=== PATIENT | female | born 1955 | race Two or more races ===

== ENCOUNTER 2017-01-07 19:59 | Emergency (ER) | payer MEDICAID, OTHER ==
[~2017-01-07] VITALS: Ht 154.9 cm; Wt 99.8 kg
[~2017-01-07 19:59] MED LIST: ASPI-618 PO; GLIM1TAB PO; LANS30TA4 PO; NITR0.4T SL
--- NOTE | 2017-01-07 20:38 | NUR ---
PATIENT WALKED INTO ER WITH FAMILY MEMBER C/O WEAKNESS X3 DAYS AND NAUSEA AND EPIGASTRIC AFTER EATTING. DENIES PAIN,SOB UPON ARRIVAL. DR PULLIAM INTO EVAL PATIENT
[2017-01-07 20:56] LABS: *BILIRUBIN,URIN NEGATIVE (NEGATIVE); *BLOOD, URINE Trace-intact (NEGATIVE); *CLARITY,URINE CLEAR (CLEAR); *COLOR,URINE YELLOW (YELLOW); *KETONES,URINE NEGATIVE (NEGATIVE); *PROTEIN,URINE NEGATIVE (NEGATIVE); *UROBILINOGEN,URINE 0.2 E.U./dl (NORMAL); LEUKOCYTE ESTERASE ,URINE TRACE (NEGATIVE); NITRITE, URINE NEGATIVE (NEGATIVE); PH,URINE 6.5 (5.0-8.0); UGLUCOSE NEGATIVE (NEGATIVE)
[2017-01-07 21:02] LABS: BACTERIA,URINE FEW /HPF (NONE SEEN); RBC,URINE 0-3 /HPF (0-3); SQUAMOUS EPITHELIAL CELL,UR FEW /HPF (NONE SEEN)
[2017-01-07 21:51] LABS: CREATININE 0.5 mg/dL (0.6-1.3); POTASSIUM 3.9 mmol/L (3.5-5.1)
[2017-01-07 21:53] LABS: BASOPHILS % (AUTO) 0.4 % (0.0-2.0); EOSINOPHILS # (AUTO) 0.1 K/uL (0.0-0.7); HEMATOCRIT 43.2 % (37-47); HEMOGLOBIN 14.9 G/DL (12.0-16.0); LYMPHOCYTES # (AUTO) 1.9 K/UL (0.8-4.8); LYMPHOCYTES % (AUTO) 25.7 % (20.5-51.5); MEAN CORPUSCULAR HEMOGLOBIN 29.8 UUG (27.0-31.0); MEAN CORPUSCULAR HGB CONC 34 g/dL (32.0-37.0); MEAN CORPUSCULAR VOLUME 86.5 FL (81.0-99.0); MONOCYTES # (AUTO) 0.6 K/UL (0.1-1.30); MONOCYTES % (AUTO) 8.6 % (0.0-11.0); NEUTROPHILS # (AUTO) 4.7 K/UL (1.8-8.9); NEUTROPHILS % (AUTO) 63.3 % (38.5-71.5); PLATELET COUNT (AUTO) 202 K/UL (150-450); RED BLOOD CELL COUNT(AUTO) 4.99 MIL/UL (4.2-5.4); WHITE BLOOD COUNT (AUTO) 7.3 K/UL (4.0-11.2)
[2017-01-07 21:57] LABS: BILIRUBIN,DIRECT 0.1 mg/dL (0.0-0.2); BILIRUBIN,TOTAL 0.9 mg/dL (0.2-1.0); TOTAL PROTEIN, SERUM 7.4 g/dL (6.4-8.2)
--- NOTE | 2017-01-07 22:22 | NUR ---
Patient discharged to home in stable conditon WITH SON TAKING PATIENT HOME. Written and verbal after care instructions given. Patient verbalizes understanding of instructions. WALKED OUT OF ER WITH STEADY GAIT. NO DISTRESS NOTED
[2017-01-07 22:23] VITALS: BP 150/78
== END 2017-01-07 22:23 | disposition home or self-care (01) ==
LOC: ER 20:03
DX: E03.9 Hypothyroidism, unspecified (principal); I10 Essential (primary) hypertension; K21.9 Gastro-esophageal reflux disease without esophagitis; E11.9 Type 2 diabetes mellitus without complications; Z79.82 Long term (current) use of aspirin
CPT/HCPCS: 36415; 70030-TC; 71010; 83690; 84443; 85025; 93005; A4663; J7030

== ENCOUNTER 2023-06-07 13:28 | Inpatient (IN) | payer MEDICARE, OTHER ==
[~2023-06-07] VITALS: Ht 157.5 cm; Wt 90.7 kg
[2023-06-07] MEDS ORDERED: AMLO-362 PO (13:48)
[2023-06-07] MEDS ORDERED: MECL-159 (13:48)
[2023-06-07] MEDS ORDERED: GABA-532 PO (13:48)
[2023-06-07] MEDS ORDERED: GLIM1TAB18 PO (13:48)
[2023-06-07] MEDS ORDERED: HYDR25TA86 PO (13:48)
[2023-06-07] MEDS ORDERED: PROP20TA19 (13:48)
[2023-06-07] MEDS ORDERED: HYDR-3980 PO (13:48)
[2023-06-07] MEDS ORDERED: ACET-73 PO (13:48)
[2023-06-07] MEDS ORDERED: ASCO500T23 PO (13:48)
[2023-06-07] MEDS ORDERED: ERGO500040 PO (13:48)
[2023-06-07] MEDS ORDERED: ASPI-1420 PO (13:48)
[2023-06-07] MEDS ORDERED: SIMV10TA98 PO (13:48)
[2023-06-07] MEDS ORDERED: ASPIRIN 81 MG TAB.CHEW ONE (14:25)
[2023-06-07] MEDS: ASPIRIN 81 MG TAB.CHEW PO ONE (14:28)
[2023-06-07 14:51] LABS: *BILIRUBIN,URIN NEGATIVE (NEGATIVE); *BLOOD, URINE NEGATIVE (NEGATIVE); *CLARITY,URINE CLEAR (CLEAR); *COLOR,URINE YELLOW (YELLOW); *KETONES,URINE NEGATIVE (NEGATIVE); *PROTEIN,URINE NEGATIVE (NEGATIVE); *UROBILINOGEN,URINE 0.2 E.U./dl (NORMAL); LEUKOCYTE ESTERASE ,URINE 1+ (NEGATIVE); NITRITE, URINE NEGATIVE (NEGATIVE); UGLUCOSE NEGATIVE (NEGATIVE)
[2023-06-07 15:02] LABS: BASOPHILS % (AUTO) 0.5 % (0.0-2.0); EOSINOPHILS % (AUTO) 0.5 % (0.0-7.0); HEMATOCRIT 43.5 % (31.2-41.9); HEMOGLOBIN 15.3 g/dL (10.9-14.3); LYMPHOCYTES # (AUTO) 1.4 K/uL (0.8-4.8); LYMPHOCYTES % (AUTO) 21.6 % (20.5-51.5); MEAN CORPUSCULAR HEMOGLOBIN 31.1 uug (24.7-32.8); MEAN CORPUSCULAR HGB CONC 35 g/dL (32.3-35.6); MEAN CORPUSCULAR VOLUME 88.4 fL (75.5-95.3); MONOCYTES # (AUTO) 0.4 K/uL (0.1-1.30); NEUTROPHILS # (AUTO) 4.5 K/uL (1.8-8.9); NEUTROPHILS % (AUTO) 70.4 % (38.5-71.5); PLATELET COUNT (AUTO) 158 K/uL (179-408); RED BLOOD CELL COUNT(AUTO) 4.91 MIL/uL (3.63-4.92); RED CELL DISTRIBUTION WIDTH 13.4 % (12.3-17.7); WHITE BLOOD COUNT (AUTO) 6.4 K/uL (3.8-11.8)
[2023-06-07 15:09] LABS: RBC,URINE 0-3 /HPF (0-3)
[2023-06-07 15:10] LABS: BACTERIA,URINE FEW /HPF (NONE SEEN); SQUAMOUS EPITHELIAL CELL,UR FEW /HPF (NONE SEEN)
[2023-06-07 15:11] LABS: CALCIUM 9.5 mg/dL (8.5-10.1); CARBON DIOXIDE 27 mmol/L (21-32); CHLORIDE 101 mmol/L (98-107); CREATININE 0.6 mg/dL (0.6-1.3); GLUCOSE 146 mg/dL (74-106); POTASSIUM 3.7 mmol/L (3.5-5.1); SODIUM SERUM 138 mmol/L (136-145); UREA NITROGEN, BLOOD 18 mg/dL (7-18)
[2023-06-07 15:20] LABS: DIFFERENTIAL COMMENT 1
[2023-06-07 15:27] LABS: ALANINE AMINOTRANSFERASE 96 U/L (14-59); ALBUMIN 4.1 g/dL (3.4-5.0); ALKALINE PHOSPHATASE 88 U/L (50-136); ASPARTATE AMINOTRANSFERASE 68 U/L (15-37); BILIRUBIN,DIRECT 0.2 mg/dL (0.0-0.2); BILIRUBIN,TOTAL 1.3 mg/dL (0.2-1.0); NT-PRO BNP 36 pg/mL (0-125); TOTAL PROTEIN, SERUM 8.6 g/dL (6.4-8.2)
[2023-06-07] MEDS ORDERED: CLONIDINE HCL 0.1 MG TABLET ONE (15:51)
[2023-06-07] MEDS: CLONIDINE HCL 0.1 MG TABLET PO ONE (15:55)
[2023-06-07] MEDS ORDERED: SULFAMETH/TRIMETH 800/160 MG TABLET ONE (15:56)
[2023-06-07] MEDS: SULFAMETH/TRIMETH 800/160 MG TABLET PO ONE (15:59)
[2023-06-07 16:01] LABS: THYROID STIMULATING HORMONE 3.07 mIU/mL (0.358-3.740)
[2023-06-07 16:25] LABS: MAGNESIUM 1.9 mg/dL (1.8-2.4)
[2023-06-07] MEDS ORDERED: FLAS1EAC2 TP (16:59)
[2023-06-07] MEDS ORDERED: FLAS1KIT2 TP (16:59)
[2023-06-07] MEDS ORDERED: INSULIN REGULAR, HUMAN 300 UNITS/3 ML VIAL SQ PRN (17:30)
[2023-06-07] MEDS ORDERED: MAGNESIUM HYDROXIDE 30 ML LIQUID UDC PO PRN (17:30)
[2023-06-07] MEDS ORDERED: HYDROCODONE/APAP 5-325MG TABLET PO PRN (17:30)
[2023-06-07] MEDS ORDERED: ACETAMINOPHEN 325 MG TABLET PO PRN (17:30)
[2023-06-07] MEDS ORDERED: ONDANSETRON 4 MG/2 ML VIAL IV PRN (17:30)
[2023-06-07] MEDS ORDERED: MORPHINE SULFATE 2 MG/1 ML DISP.SYRIN IV PRN (17:30)
[2023-06-07] MEDS ORDERED: NITROGLYCERIN 0.4 MG/TAB BOTTLE SL PRN (17:30)
[2023-06-07] MEDS ORDERED: DEXTROSE 50% 50 ML DISP.SYRIN IV PRN (17:30)
[2023-06-07] MEDS ORDERED: REMEDY ESSENTIAL ZINC PASTE 113 GM TP PRN (17:30)
[2023-06-07] MEDS: PROPRANOLOL HCL 20 MG TABLET PO SCH (18:50)
[2023-06-07] MEDS ORDERED: SIMVASTATIN 10 MG TABLET ONE (19:01)
[2023-06-07] MEDS: SIMVASTATIN 10 MG TABLET PO SCH (19:02)
[2023-06-07] MEDS: BLOOD SUGAR DIAGNOSTIC 1 EACH STRIP VI SCH (21:41)
[2023-06-07 21:49] VITALS: BP 127/58; TEMP 98.4; O2SAT 95
[2023-06-08] MEDS: CLONIDINE HCL 0.1 MG TABLET PO PRN (00:04)
[2023-06-08 00:10] VITALS: BP 169/81; TEMP 97.9; O2SAT 97
[2023-06-08 04:20] VITALS: BP 134/58; TEMP 98.2; O2SAT 95
[2023-06-08 06:55] LABS: CREATININE 0.8 mg/dL (0.6-1.3); POTASSIUM 3.6 mmol/L (3.5-5.1)
[2023-06-08 06:59] LABS: BASOPHILS % (AUTO) 0.4 % (0.0-2.0); EOSINOPHILS # (AUTO) 0.1 K/uL (0.0-0.7); EOSINOPHILS % (AUTO) 1.8 % (0.0-7.0); HEMATOCRIT 38.6 % (31.2-41.9); HEMOGLOBIN 13.7 g/dL (10.9-14.3); LYMPHOCYTES # (AUTO) 1.8 K/uL (0.8-4.8); LYMPHOCYTES % (AUTO) 29.1 % (20.5-51.5); MEAN CORPUSCULAR HEMOGLOBIN 31.4 uug (24.7-32.8); MEAN CORPUSCULAR HGB CONC 35 g/dL (32.3-35.6); MEAN CORPUSCULAR VOLUME 88.7 fL (75.5-95.3); MONOCYTES # (AUTO) 0.6 K/uL (0.1-1.30); MONOCYTES % (AUTO) 9.8 % (0.0-11.0); NEUTROPHILS # (AUTO) 3.7 K/uL (1.8-8.9); NEUTROPHILS % (AUTO) 58.9 % (38.5-71.5); PLATELET COUNT (AUTO) 159 K/uL (179-408); RED BLOOD CELL COUNT(AUTO) 4.35 MIL/uL (3.63-4.92); RED CELL DISTRIBUTION WIDTH 13.3 % (12.3-17.7); WHITE BLOOD COUNT (AUTO) 6.3 K/uL (3.8-11.8)
[2023-06-08] MEDS ORDERED: PROPRANOLOL HCL 20 MG TABLET PO SCH (09:00)
[2023-06-08] MEDS: GABAPENTIN 100 MG CAPSULE PO SCH (10:35)
[2023-06-08] MEDS: ASPIRIN EC 81 MG TABLET.DR PO SCH (10:35)
[2023-06-08] MEDS: INSULIN REGULAR, HUMAN 300 UNIT/3 ML VIAL SQ PRN (10:40)
[2023-06-08 11:53] VITALS: BP 129/72; TEMP 97.6; O2SAT 96
[2023-06-08] MEDS ORDERED: SIMVASTATIN 10 MG TABLET PO SCH (21:00)
== END 2023-06-08 12:45 | disposition home or self-care (01) | DRG 305 ==
LOC: ER 13:28 → TRANSITION 18:06 → TELE3 20:44
PROVIDERS: ADMIT Internal Medicine; ATTEND Internal Medicine
DX: I16.0 Hypertensive urgency (principal); R07.2 Precordial pain; E11.9 Type 2 diabetes mellitus without complications; Z68.36 Body mass index [BMI] 36.0-36.9, adult; I10 Essential (primary) hypertension; E66.9 Obesity, unspecified; F41.9 Anxiety disorder, unspecified; E78.5 Hyperlipidemia, unspecified; N64.4 Mastodynia; R25.1 Tremor, unspecified; G89.29 Other chronic pain; K21.9 Gastro-esophageal reflux disease without esophagitis; Z79.82 Long term (current) use of aspirin; Z79.899 Other long term (current) drug therapy; Z79.84 Long term (current) use of oral hypoglycemic drugs; F32.A Depression, unspecified
CPT/HCPCS: 36415; 71045; 83735; 84100; 84443; 84484; 85025; 85730; 93005; G0378; J1815

== ENCOUNTER 2024-06-25 21:35 | Emergency (ER) | payer MEDICARE, OTHER ==
[~2024-06-25] VITALS: Ht 162.6 cm; Wt 104.3 kg
[~2024-06-25 21:35] MED LIST changes: +ACET-73 PO; +AMLO-362 PO; +ASCO500T23 PO; +ASPI-1420 PO; -ASPI-618 PO; +ERGO500040 PO; +FLAS1EAC2 TP; +FLAS1KIT2 TP; +GABA-532 PO; -GLIM1TAB PO; +GLIM1TAB18 PO; +HYDR-3980 PO; +HYDR25TA86 PO; +MECL-159; +PROP20TA19; +SIMV10TA98 PO
[2024-06-25 22:53] LABS: BASOPHILS % (AUTO) 0.5 % (0.0-2.0); EOSINOPHILS # (AUTO) 0.2 K/uL (0.0-0.7); EOSINOPHILS % (AUTO) 3.3 % (0.0-7.0); HEMATOCRIT 40.3 % (31.2-41.9); HEMOGLOBIN 14.2 g/dL (10.9-14.3); LYMPHOCYTES # (AUTO) 1.9 K/uL (0.8-4.8); LYMPHOCYTES % (AUTO) 26.9 % (20.5-51.5); MEAN CORPUSCULAR HEMOGLOBIN 31.1 uug (24.7-32.8); MEAN CORPUSCULAR HGB CONC 35 g/dL (32.3-35.6); MEAN CORPUSCULAR VOLUME 88.6 fL (75.5-95.3); MONOCYTES # (AUTO) 0.7 K/uL (0.1-1.30); MONOCYTES % (AUTO) 10.2 % (0.0-11.0); NEUTROPHILS # (AUTO) 4.2 K/uL (1.8-8.9); NEUTROPHILS % (AUTO) 59.1 % (38.5-71.5); PLATELET COUNT (AUTO) 158 K/uL (179-408); RED BLOOD CELL COUNT(AUTO) 4.55 MIL/uL (3.63-4.92); RED CELL DISTRIBUTION WIDTH 13.7 % (12.3-17.7); WHITE BLOOD COUNT (AUTO) 7.1 K/uL (3.8-11.8)
[2024-06-25 22:54] LABS: DIFFERENTIAL COMMENT 1
[2024-06-25 22:59] LABS: CALCIUM 9.1 mg/dL (8.5-10.1); CREATININE 0.7 mg/dL (0.6-1.3); POTASSIUM 3.5 mmol/L (3.5-5.1)
[2024-06-25] MEDS ORDERED: KETOROLAC TROMETHAMINE 30 MG INJ ONE (23:06)
[2024-06-25] MEDS: KETOROLAC TROMETHAMINE 30 MG INJ IM ONE (23:08)
[2024-06-25] MEDS: CLONIDINE HCL 0.1 MG TABLET PO ONE (23:09)
[2024-06-25 23:12] LABS: ALBUMIN 3.8 g/dL (3.4-5.0); TOTAL PROTEIN, SERUM 7.8 g/dL (6.4-8.2)
[2024-06-26] MEDS ORDERED: NAPR-1192 PO (00:54)
[2024-06-26 01:12] VITALS: BP 150/96; TEMP 97.8; O2SAT 98
== END 2024-06-26 01:12 | disposition home or self-care (01) ==
LOC: ER 22:37
DX: T14.8XXA Other injury of unspecified body region, initial encounter (principal); M25.512 Pain in left shoulder; M54.2 Cervicalgia; M79.605 Pain in left leg; R94.31 Abnormal electrocardiogram [ECG] [EKG]; E11.9 Type 2 diabetes mellitus without complications; I11.9 Hypertensive heart disease without heart failure; F32.A Depression, unspecified; Z87.19 Personal history of other diseases of the digestive system; Z79.82 Long term (current) use of aspirin; Z79.899 Other long term (current) drug therapy; W01.0XXA Fall on same level from slipping, tripping and stumbling without subsequent striking against object, initial encounter; Y93.01 Activity, walking, marching and hiking; Y92.89 Other specified places as the place of occurrence of the external cause; Y99.8 Other external cause status
CPT/HCPCS: 99285; 70450; 71045; 80053; 83880; 85025; 84484; 36415; 72125; 93005; 96372; J1885; A4606; A4663